=== PATIENT | male | born 1970 | race African-American/Black ===

== ENCOUNTER 2017-08-09 12:39 | Emergency (ER) | payer BC ==
[2017-08-09 13:16] LABS: #Eosinphils 0.2 thou/uL (0.0-0.7); #Lymphocytes 1.7 thou/uL (1.20-3.40); #Monocytes 0.5 thou/uL (0.11-0.59); %Basophils 0.9 % (0.0-1.0); %Eosinophils 4.3 % (0.0-10.0); %Lymphocytes 31.3 % (21.0-51.0); %Neutrophils 54.4 % (42.0-75.0); Hemoglobin 15.3 g/dL (14.0-18.0); Mean Corpuscular HGB CONC 32.8 g/dL (32.0-36.0); Mean Corpuscular Hemoglobin 27.4 pg (27.0-31.0); Mean Corpuscular Volume 83.5 fl (80.0-94.0); Mean Platelet Volume 5.9 fL (7.4-10.4); Platelet Count 327 thou/uL (130-400); Red Blood Cell (RBC) Count 5.58 mill/uL (4.70-6.10); White Blood Cell (WBC) Count 5.5 thou/uL (4.8-10.8)
[2017-08-09 13:37] LABS: ALT (SGPT) 31 U/L (8-55); AST (SGOT) 24 U/L (5-34); Albumin 4.3 g/dL (3.5-5.0); Alkaline Phosphatase 92 U/L (40-150); Anion Gap 12 mmol/L (10-20); BUN (Urea Nitrogen) 9 mg/dL (8.9-20.6); Bilirubin, Total 0.4 mg/dL (0.2-1.2); Calc. Creatinine Clearance 0 mL/min (70-130); Calcium 9.4 mg/dL (7.8-10.44); Carbon Dioxide 23 mmol/L (22-29); Chloride 104 mmol/L (98-107); Estimated GFR-MDRD 86; Globulin 3.6 g/dL (2.4-3.5); Glucose 119 mg/dL (70-105); Potassium 4.1 mmol/L (3.5-5.1); Protein, Total 7.9 g/dL (6.0-8.3); Sodium 135 mmol/L (136-145)
--- NOTE | 2017-08-09 14:35 | CT ---
CT BRAIN: Date: 08/09/17 PROVIDED CLINICAL HISTORY: Altered mental status. FINDINGS: The ventricular system appears normal in size and morphology. There is no evidence for intracranial h emorrhage or mass effect. The extracranial soft tissues and osseous structures demonstrate no evidenc e for an acute process. IMPRESSION: No evidence for intracranial hemorrhage or mass effect. POS: [facility]
== END 2017-08-09 14:26 | disposition home or self-care (01) ==
LOC: ERS 12:39
DX: S00.512A Abrasion of oral cavity, initial encounter (principal); R56.9 Unspecified convulsions; G89.29 Other chronic pain; Z79.891 Long term (current) use of opiate analgesic; Y33.XXXA Other specified events, undetermined intent, initial encounter
CPT/HCPCS: 36415; 70450; 80053; 84146; 85025; 96360; 96361

== ENCOUNTER 2018-10-29 08:36 | Emergency (ER) | payer MEDICARE ==
[2018-10-29] MEDS ORDERED: levETIRAcetam 500 MG TAB PO SCH (09:45)
== END 2018-10-29 09:46 | disposition home or self-care (01) ==
LOC: ERS 08:36
DX: G40.909 Epilepsy, unspecified, not intractable, without status epilepticus (principal)
CPT/HCPCS: 99284

== ENCOUNTER 2018-12-30 07:42 | Outpatient (CLI) | payer MEDICARE ==
--- NOTE | 2018-12-30 08:56 | MRI ---
MRI LUMBAR SPINE WITHOUT CONTRAST: History: M51.17, intervertebral disc disorder. Comparison: CT 2012, MRI 2012. FINDINGS: On the prior CT examination, the transitional lumbosacral vertebra was labelled at L5 and on the MRI it was labelled at S1. For the sake of this MRI similarities, the interstitial lumbosacral vertebra w ill be termed a lumbarized sacral vertebral and S1. Given this terminology, there is a small right L1 lumbar rib. Normal disc. No neural foraminal or spi nal canal narrowing. L2-3: Normal disc. Low grade facet arthrosis. No neural foraminal or spinal canal narrowing. L3-4: Normal disc hydration. Very small bilateral disc osteophyte complexes. No neural foraminal or s magnolia canal narrowing. L4-5: Normal disc hydration. Disc osteophyte complexes. Mild bilateral neural foraminal narrowing. L5-S1: There is disc dehydration with a central disc protrusion superimposed on the broad based poste rior disc osteophyte complex. There is moderate bilateral neural foraminal narrowing and abutment of both exiting and traversing nerve roots. IMPRESSION: 1. Moderate spondylosis at L5-S1. 2. Type 2B lumbosacral transitional vertebra. POS: OFF
== END 2018-12-30 07:43 | disposition home or self-care (01) ==
LOC: BICMRI 07:42
PROVIDERS: ATTEND Nurse Practitioner Family
DX: M51.17 Intervertebral disc disorders with radiculopathy, lumbosacral region (principal); M47.27 Other spondylosis with radiculopathy, lumbosacral region
CPT/HCPCS: 72148

== ENCOUNTER 2019-05-03 07:59 | Outpatient (CLI) | payer MEDICARE ==
--- NOTE | 2019-05-03 09:48 | CT ---
CT lumbar spine without contrast: HISTORY: Lumbar radiculopathy, acute low back pain. Patient states back pain that radiates down bilateral lowe r extremities. Numbness and tingling. COMPARISON: CT lumbar spine on 11/04/2012 and MRI lumbar spine on 12/30/2018. FINDINGS: Visualized retroperitoneal structures demonstrate a normal nonenhanced CT appearance aside from vascu lar calcifications in the abdominal aorta and visualized iliac arteries. The vertebral body heights are within normal limits. No fracture or subluxation is seen involving the lumbar spine. As noted on MRI and prior CT exam, there is a transitional vertebra at the lumbosacral junction. In k eeping with the numbering system on MRI lumbar spine, the transitional vertebra will be labeled S1. Please see numbering system for details. L1-2: No significant central canal or neural foraminal narrowing is seen. L2-3: No significant central canal or neural foraminal narrowing is seen. L3-4: Minimal disc osteophyte complex is present with only slight effacement of the ventral aspect of the thecal sac. The neural foramina are patent. Facet degenerative changes are noted. L4-5: Minimal disc osteophyte complex is present. Facet degenerative changes are present. There is mi ld effacement of the ventral aspect of the thecal sac. Neural foramina are patent. L5-S1: There is a broad-based disc osteophyte complex with a left central and paracentral disc protru jeff. This disc protrusion and disc osteophyte complex does contact the bilateral traversing S1 nerve roots greater on the left and does appear to mildly deform the traversing left S1 nerve root an d likely results in slight posterior and lateral displacement of the nerve root. There is slight flattening of the anterior aspect of the thecal sac. Moderate bilateral neural foraminal narrowing is present at this level. Findings are similar to prior exams. IMPRESSION: 1. Transitional vertebra lumbosacral junction as described above. In keeping with number in system on recent MRI lumbar spine, transitional vertebra will be labeled S1. Please see images for numbering. 2. Disc degenerative changes lumbosacral junction with disc osteophyte complex and central and left p aracentral disc protrusion which does contact the bilateral traversing S1 nerve roots greater on the left. Findings are similar to prior exams.
== END 2019-05-03 08:00 | disposition home or self-care (01) ==
LOC: BICCT 07:59
PROVIDERS: ATTEND Neurological Surgery
DX: M47.27 Other spondylosis with radiculopathy, lumbosacral region (principal); M51.17 Intervertebral disc disorders with radiculopathy, lumbosacral region
CPT/HCPCS: 72131

== ENCOUNTER 2019-06-10 07:31 | Day surgery (SDC) | payer MEDICARE ==
[2019-06-03 09:30] VITALS: BMI 26.2
--- NOTE | 2019-06-09 13:34 | HP ---
HISTORY OF PRESENT ILLNESS: Mr. Silveira is a pleasant 49-year-old gentleman, here today to discuss some 10 or so years worth of lower back pain that has progressed now to include bilateral lower extremity S1 patterns of pain and tingling. He reports that it alternates in severity between the left and right. However, his right side seems to be the most severe and more frequent. He reports lower back pain averaging 5/10, which is also more on the right than anywhere else. He reports a limp when walking, but denies lower extremity weakness or bladder or bowel changes. The patient treated this unsuccessfully in the past with epidural steroid injections, facet blocks, and more recently using Quail and gabapentin, which he notes seems to help him function more. His pain is worsened when walking or standing. MRI recently at [place] reveals transitional L6 segment, which on 2012 [address] scan was ankylosed in the left at the transverse process and on recent CT scan now reveals the same on the right. He has central disk herniation at L5 that abuts the bilateral S1 nerve roots and explains well his symptoms. PAST MEDICAL HISTORY: Significant for epilepsy. PAST SURGICAL HISTORY: None listed. CURRENT MEDICATIONS: Hydrocodone, gabapentin, levetiracetam. ALLERGIES: NO KNOWN DRUG ALLERGIES. PHYSICAL EXAMINATION: The patient is alert and oriented x3. Gait is severely antalgic and slowed. He does favor the right lower extremity. He has severely limited lower extremity motor exam secondary to pain. He does have a positive right and left straight leg raise. ASSESSMENT: Lumbar radiculopathy. PLAN: Dr. Razo met with the patient, reviewed imaging, advocated for a L5 diskectomy. He explained to the patient the risks, benefits, and alternatives to the procedure. The patient expressed understanding and elected to move forward with surgery as discussed. I do believe the patient is mentally competent and capable of making medical decisions for himself. We will move forward with surgery as planned. Job ID: [id number]
[2019-06-10] MEDS ORDERED: Thrombin 5000 UNITS/5 ML VIAL ONE (09:42)
[2019-06-10] MEDS ORDERED: Bupivacaine PF 0.5% 30 ML VIAL ONE (09:42)
[2019-06-10] MEDS ORDERED: EPINEPHrine 1 MG/ML AMP ONE (09:42)
[2019-06-10] MEDS ORDERED: Fentanyl 250 MCG/5 ML VIAL ONE (09:50)
--- NOTE | 2019-06-10 11:26 | OP ---
DATE OF PROCEDURE: 06/10/2019 CONSUMER SAFETY OFFICER: Mitchel Conti PA-C INDICATION: Pain. DIAGNOSIS: Lumbar radiculopathy. PROCEDURES PERFORMED: L5 decompression and diskectomy. ANESTHESIA: General. DESCRIPTION OF PROCEDURE: The patient was brought into the operating room and placed under general anesthesia. He was flipped from the supine to prone position on the operating room table. A linear incision was planned over the L5 segment. After prepping and draping and after an appropriate operative pause, the incision was created. The soft tissues were swept away from midline. A self-retaining retractor was placed in the wound for optimal exposure. After confirming the appropriate level with C-arm fluoroscopy, an Adson rongeur was used to remove the spinous process of L5. 3 and 4 mm Kerrisons were then used to complete the laminectomy at the L5-S1 segment. The lateral recesses were decompressed. A nerve root retractor was used to mobilize the nerve root and thecal sac medially on the left, where an annulotomy was performed in the disk space, and protuberant disk material was removed until the central and lateral recesses were decompressed. The wound was then irrigated. Hemostasis was maintained throughout. The wound was then closed in anatomic layers, and a pressure dressing was applied. There were no known procedural complications. Job ID: [id number]
[2019-06-10] MEDS ORDERED: Fentanyl 100 MCG/2 ML VIAL ONE ×2 (11:40→12:17)
[2019-06-10] MEDS ORDERED: Tamsulosin HCl 0.4 MG CAP ONE (11:51)
[2019-06-10] MEDS ORDERED: Ondansetron PF 4 MG/2 ML Vial ONE (13:49)
[2019-06-10] MEDS ORDERED: PROPOFOL 200 MG/20 ML VIAL ONE (13:49)
[2019-06-10] MEDS ORDERED: Dexamethasone 20 MG/5 ML VIAL ONE (13:49)
[2019-06-10] MEDS ORDERED: Lidocaine 1% PF 5 ML VIAL ONE (13:49)
[2019-06-10] MEDS ORDERED: Glycopyrrolate 0.2 MG/ML 5 ML SYRINGE ONE (13:49)
[2019-06-10] MEDS ORDERED: Esmolol 100 MG/10 ML VIAL ONE (13:49)
[2019-06-10] MEDS ORDERED: PHENYLEPHRINE-NS 100 MCG/ML 10 ML SYRINGE ONE (13:49)
[2019-06-10] MEDS ORDERED: Rocuronium Bromide 10 MG/ML (10ML VIAL) ONE (13:49)
[2019-06-10] MEDS ORDERED: Promethazine HCl 25 MG/ML VIAL ONE (13:59)
== END 2019-06-10 15:20 | disposition home or self-care (01) ==
LOC: SDC 07:31
PROVIDERS: ATTEND Neurological Surgery
PROC: 01NB0ZZ Release Lumbar Nerve, Open Approach (ICD-10-PCS; principal; 2019-06-10)
PROC: 0SB20ZZ Excision of Lumbar Vertebral Disc, Open Approach (ICD-10-PCS; 2019-06-10)
DX: M51.16 Intervertebral disc disorders with radiculopathy, lumbar region (principal); G40.909 Epilepsy, unspecified, not intractable, without status epilepticus; Z79.899 Other long term (current) drug therapy
CPT/HCPCS: 76000; J0171; J0690; J1100; J2001; J2405; J2550; J2704; J3010; S0020

== ENCOUNTER 2019-07-21 11:05 | Outpatient (CLI) | payer MEDICARE ==
--- NOTE | 2019-07-21 13:51 | RAD ---
LEFT HIP 2 VIEWS: Date: 07/21/2019 HISTORY: Left groin pain. No history of injury. FINDINGS: Joint space is well preserved. No signs of fracture or other bony findings. IMPRESSION: Negative left hip. POS: [facility]
== END 2019-07-21 11:06 | disposition home or self-care (01) ==
LOC: TBSIIMAG 11:05
PROVIDERS: ATTEND Neurological Surgery
DX: M25.552 Pain in left hip (principal)

== ENCOUNTER 2021-01-23 09:03 | Outpatient (CLI) | payer MEDICARE | END 2021-01-23 09:04 | disposition home or self-care (01) | LOC: BICMRI 09:03 | PROVIDERS: ATTEND Anesthesiology Pain Medicine | DX: M16.12 Unilateral primary osteoarthritis, left hip (principal) ==

== ENCOUNTER 2022-08-13 14:25 | Emergency (ER) | payer MEDICARE ==
[2022-08-13] MEDS ORDERED: levETIRAcetam 500 MG/5 ML VIAL ONE (15:06)
[2022-08-13 15:31] LABS: #Basophils 0.1 thou/uL (0.0-0.2); #Eosinphils 0.1 thou/uL (0.0-0.7); #Lymphocytes 2.7 thou/uL (1.20-3.40); #Monocytes 0.8 thou/uL (0.11-0.59); #Neutrophils 4.6 thou/uL (1.40-6.50); %Eosinophils 0.7 % (0.0-10.0); %Lymphocytes 32.4 % (21.0-51.0); %Monocytes 9.7 % (0.0-10.0); %Neutrophils 56.2 % (42.0-75.0); Hemoglobin 14.6 g/dL (14.0-18.0); Mean Corpuscular HGB CONC 33.8 g/dL (32.0-36.0); Mean Corpuscular Hemoglobin 28.1 pg (27.0-31.0); Mean Platelet Volume 6.8 fL (7.4-10.4); Platelet Count 282 10x3/uL (130-400); RBC Distribution Width 12.8 % (11.5-14.5); Red Blood Cell (RBC) Count 5.19 mill/uL (4.70-6.10); White Blood Cell (WBC) Count 8.2 10x3/uL (4.8-10.8)
[2022-08-13 15:47] LABS: ALT (SGPT) 26 U/L (8-55); AST (SGOT) 22 U/L (5-34); Alkaline Phosphatase 98 U/L (40-110); Anion Gap 19 mmol/L (10-20); BUN (Urea Nitrogen) 8 mg/dL (8.4-25.7); Bilirubin, Total 0.3 mg/dL (0.2-1.2); Calc. Creatinine Clearance 0 mL/min (70-130); Calcium 8.7 mg/dL (7.8-10.44); Carbon Dioxide 15 mmol/L (22-29); Chloride 107 mmol/L (98-107); Estimated GFR 75; Globulin 3.4 g/dL (2.4-3.5); Glucose 136 mg/dL (70-105); Potassium 3.4 mmol/L (3.5-5.1); Protein, Total 7.4 g/dL (6.0-8.3); Sodium 138 mmol/L (136-145)
[2022-08-13] MEDS ORDERED: PROPOFOL 0 ML ONE (15:55)
[2022-08-13] MEDS ORDERED: PROPOFOL 20 ML ONE (15:56)
== END 2022-08-13 18:48 | disposition home or self-care (01) ==
LOC: ERS 14:25
DX: S43.015A Anterior dislocation of left humerus, initial encounter (principal); R56.9 Unspecified convulsions; X58.XXXA Exposure to other specified factors, initial encounter; Z79.899 Other long term (current) drug therapy
CPT/HCPCS: 23650; 70450; 73030; 80053; 82962; 85025; 94760; 96365; 99152; 99153; 99284; J1953; 36415; 36416; J2704

== ENCOUNTER 2022-09-03 08:48 | Outpatient (CLI) | payer MEDICARE ==
[2022-09-03] MEDS ORDERED: Magnevist 469MG/ML 20 ML VIAL ONE (12:50)
== END 2022-09-03 08:49 | disposition home or self-care (01) ==
LOC: MRI 08:48
PROVIDERS: ATTEND Anesthesiology Pain Medicine
DX: M47.22 Other spondylosis with radiculopathy, cervical region (principal); G40.209 Localization-related (focal) (partial) symptomatic epilepsy and epileptic syndromes with complex partial seizures, not intractable, without status epilepticus; M62.89 Other specified disorders of muscle
CPT/HCPCS: 70553; 72141; A9579